=== PATIENT | female | born 1940 | race African-American/Black ===

== ENCOUNTER 2017-07-12 17:21 | Emergency (ER) | payer MEDICARE, OTHER ==
[~2017-07-12] VITALS: Ht 154.9 cm; Wt 60.0 kg
[2017-07-12 20:04] LABS: BASOPHILS % 0.8 % (0.0-2.0); EOSINOPHILS % 0.5 % (0.0-5.0); HEMATOCRIT. 31.7 % (36.0-48.0); HEMOGLOBIN. 10.9 g/dL (12.0-16.0); MEAN CORPUSCULAR HEMOGLOBIN 28.8 pg (28.0-32.0); MEAN PLATELET VOLUME 8.4 fl (7.4-10.4); MONOCYTES % 5.5 % (2.0-8.0); NEUTROPHILS % 69.2 % (40.0-76.0); PLATELET 224 x1000/uL (130-400); RED BLOOD CELL COUNT 3.77 mill/uL (4.2-5.4); RED CELL DISTRIBUTION WIDTH 14.9 % (11.6-14.6)
[2017-07-12 20:14] LABS: CARBON DIOXIDE 26 mEq/L (21-32); CHLORIDE 105 mEq/L (98-107)
[2017-07-12 20:16] LABS: PROTHROMBIN TIME 10.8 sec (9.4-11.6)
[2017-07-12 21:11] VITALS: BP 176/68
== END 2017-07-12 21:17 | disposition home or self-care (01) ==
LOC: ER 17:31
DX: R04.0 Epistaxis (principal); R05 Cough; D64.9 Anemia, unspecified; I12.9 Hypertensive chronic kidney disease with stage 1 through stage 4 chronic kidney disease, or unspecified chronic kidney disease; N18.9 Chronic kidney disease, unspecified; G23.8 Other specified degenerative diseases of basal ganglia; Z88.0 Allergy status to penicillin; Z88.5 Allergy status to narcotic agent; Z88.6 Allergy status to analgesic agent; Z86.73 Personal history of transient ischemic attack (TIA), and cerebral infarction without residual deficits
CPT/HCPCS: 36415; 70450; 80053; 85025; 85610; 99285

== ENCOUNTER 2019-06-05 19:21 | Inpatient (IN) | payer MEDICARE, OTHER ==
[~2019-06-05] VITALS: Ht 165.1 cm; Wt 52.2 kg
[2019-06-05 20:20] LABS: BASOPHILS % 0.6 % (0.0-2.0); EOSINOPHILS % 1.4 % (0.0-5.0); HEMATOCRIT. 26.3 % (36.0-48.0); HEMOGLOBIN. 8.6 g/dL (12.0-16.0); LYMPHOCYTES % 14.8 % (20.0-50.0); MEAN CORPUSCULAR HEMOGLOBIN 28.8 pg (28.0-32.0); MEAN CORPUSCULAR VOLUME 88.1 fL (81.0-99.0); MEAN PLATELET VOLUME 7.7 fl (7.4-10.4); MONOCYTES % 10.4 % (2.0-8.0); NEUTROPHILS % 72.8 % (40.0-76.0); PLATELET 229 x1000/uL (130-400); RED BLOOD CELL COUNT 2.99 mill/uL (4.2-5.4); RED CELL DISTRIBUTION WIDTH 19.1 % (11.6-14.6)
[2019-06-05 20:31] LABS: CHLORIDE 98 mEq/L (98-107)
[2019-06-05 20:33] LABS: INR 1.1; PROTHROMBIN TIME 11.1 sec (9.6-11.0)
[2019-06-05] MEDS ORDERED: ACETAMINOPHEN 325MG TABLET PO PRN (22:15)
[2019-06-05] MEDS ORDERED: HYDRALAZINE 20MG/ML VIAL IV PRN (22:15)
[2019-06-05] MEDS ORDERED: POTASSIUM CHLORIDE INJ 40 MEQ in DEXT 5% WATER 250 ML IV NR (22:15)
[2019-06-05] MEDS ORDERED: ONDANSETRON HCL 4MG/2ML INJ IV PRN (22:15)
[2019-06-06] VITALS (7 sets, daily range): BP systolic 95–147; BP diastolic 46–58
[2019-06-06 07:30] LABS: CLARITY URINE CLOUDY (CLEAR); COLOR URINE YELLOW (YELLOW); KETONES URINE NEGATIVE (NEGATIVE); LEUKOCYTE ESTERASE URINE 3+ (NEGATIVE); NITRITE URINE NEGATIVE (NEGATIVE); OCCULT BLOOD URINE NEGATIVE (NEGATIVE); PH URINE 5.5 (4.5-8.0); PROTEIN URINE 1+ (NEGATIVE); SPECIFIC GRAVITY URINE 1.011 (1.005-1.030); UROBILINOGEN URINE 0.2 E.U./dL (0.2-1.0)
[2019-06-06] MEDS: AMLODIPINE 5MG TABLET PO SCH ×2 (08:55→21:00)
[2019-06-06 09:04] LABS: BASOPHILS % 0.7 % (0.0-2.0); EOSINOPHILS % 1.1 % (0.0-5.0); HEMATOCRIT. 24.8 % (36.0-48.0); HEMOGLOBIN. 8.2 g/dL (12.0-16.0); LYMPHOCYTES % 16.8 % (20.0-50.0); MEAN CORPUSCULAR HEMOGLOBIN 29.1 pg (28.0-32.0); MEAN CORPUSCULAR VOLUME 88.1 fL (81.0-99.0); MEAN PLATELET VOLUME 8.1 fl (7.4-10.4); MONOCYTES % 7.9 % (2.0-8.0); NEUTROPHILS % 73.5 % (40.0-76.0); PLATELET 216 x1000/uL (130-400); RED BLOOD CELL COUNT 2.81 mill/uL (4.2-5.4); RED CELL DISTRIBUTION WIDTH 19.7 % (11.6-14.6)
[2019-06-06] MEDS ORDERED: LEVOFLOXACIN 500MG PREMIX 100 ML IV NR (12:00)
[2019-06-06] MEDS ORDERED: LEVOFLOXACIN 500MG PREMIX 100 ML IV SCH (13:00)
[2019-06-07 00:05] VITALS: BP 136/75
[2019-06-07 04:00] VITALS: BP 140/61
[2019-06-07 06:34] LABS: BASOPHILS % 0.2 % (0.0-2.0); HEMATOCRIT. 27.1 % (36.0-48.0); HEMOGLOBIN. 8.9 g/dL (12.0-16.0); MEAN CORPUSCULAR HEMOGLOBIN 29.2 pg (28.0-32.0); MEAN CORPUSCULAR VOLUME 88.7 fL (81.0-99.0); MONOCYTES % 6.3 % (2.0-8.0); NEUTROPHILS % 80.5 % (40.0-76.0); PLATELET 201 x1000/uL (130-400); RED BLOOD CELL COUNT 3.05 mill/uL (4.2-5.4); RED CELL DISTRIBUTION WIDTH 19.6 % (11.6-14.6)
[2019-06-07 08:00] VITALS: BP 137/47
[2019-06-07] MEDS: AMLODIPINE 5MG TABLET PO SCH ×2 (09:02→20:38)
[2019-06-07 12:00] VITALS: BP 128/51
[2019-06-07 16:00] VITALS: BP 119/69
[2019-06-07 20:00] VITALS: BP 134/56
[2019-06-07] MEDS: FOLIC ACID/VITAMIN B COMP W-C TABLET PO SCH (20:38)
[2019-06-08] VITALS: BP 140/72
[2019-06-08 04:00] VITALS: BP 138/56
[2019-06-08 08:00] VITALS: BP 144/61
[2019-06-08] MEDS: AMLODIPINE 5MG TABLET PO SCH ×2 (09:00→20:55)
[2019-06-08] MEDS: FOLIC ACID/VITAMIN B COMP W-C TABLET PO SCH (09:00)
[2019-06-08 12:00] VITALS: BP 138/79
[2019-06-08] MEDS ORDERED: LEVOFLOXACIN 250MG PREMIX 50 ML IV SCH (12:00)
[2019-06-08 16:00] VITALS: BP 138/79
[2019-06-08 20:52] VITALS: BP 108/60
[2019-06-09 00:52] VITALS: BP 130/48
[2019-06-09 04:00] VITALS: BP 128/46
[2019-06-09 07:16] LABS: BASOPHILS % 0.4 % (0.0-2.0); EOSINOPHILS % 1.1 % (0.0-5.0); HEMATOCRIT. 24.7 % (36.0-48.0); MEAN PLATELET VOLUME 8.6 fl (7.4-10.4); MONOCYTES % 7.4 % (2.0-8.0); NEUTROPHILS % 71.1 % (40.0-76.0); PLATELET 177 x1000/uL (130-400); RED BLOOD CELL COUNT 2.77 mill/uL (4.2-5.4); RED CELL DISTRIBUTION WIDTH 19.9 % (11.6-14.6)
[2019-06-09 07:32] LABS: PHOSPHORUS 1.7 mg/dL (2.5-4.9)
[2019-06-09 08:00] VITALS: BP 141/53
[2019-06-09] MEDS: FOLIC ACID/VITAMIN B COMP W-C TABLET PO SCH (08:38)
[2019-06-09] MEDS: AMLODIPINE 5MG TABLET PO SCH ×2 (09:00→20:23)
[2019-06-09 13:06] VITALS: BP 141/50
[2019-06-09 16:31] VITALS: BP 148/56
[2019-06-09 20:11] VITALS: BP 132/56
[2019-06-10 00:40] VITALS: BP 161/133
[2019-06-10 04:00] VITALS: BP 126/52
[2019-06-10 08:00] VITALS: BP 146/49
[2019-06-10 08:46] VITALS: BP 146/49
[2019-06-10 09:03] VITALS: BP 146/49
[2019-06-10] MEDS: AMLODIPINE 5MG TABLET PO SCH (09:19)
[2019-06-10] MEDS: FOLIC ACID/VITAMIN B COMP W-C TABLET PO SCH (09:19)
== END 2019-06-10 10:00 | disposition home or self-care (01) | DRG 871 ==
LOC: ER 19:21 → 7WST 22:04 → EDBEDREQ 22:11 → EDBEDREQTM 22:11 → ENRESERV 23:17
PROVIDERS: ADMIT Internal Medicine; ATTEND Internal Medicine
PROC: 5A1D70Z Performance of Urinary Filtration, Intermittent, Less than 6 Hours Per Day (ICD-10-PCS; principal; 2019-06-06)
PROC: 5A1D70Z Performance of Urinary Filtration, Intermittent, Less than 6 Hours Per Day (ICD-10-PCS; 2019-06-08)
DX: A41.51 Sepsis due to Escherichia coli [E. coli] (principal); G93.41 Metabolic encephalopathy; N18.6 End stage renal disease; E44.0 Moderate protein-calorie malnutrition; N39.0 Urinary tract infection, site not specified; I13.2 Hypertensive heart and chronic kidney disease with heart failure and with stage 5 chronic kidney disease, or end stage renal disease; Z68.1 Body mass index [BMI] 19.9 or less, adult; D63.1 Anemia in chronic kidney disease; E87.6 Hypokalemia; I50.9 Heart failure, unspecified; I27.20 Pulmonary hypertension, unspecified; F03.90 Unspecified dementia, unspecified severity, without behavioral disturbance, psychotic disturbance, mood disturbance, and anxiety; E78.5 Hyperlipidemia, unspecified; Z88.8 Allergy status to other drugs, medicaments and biological substances; Z99.2 Dependence on renal dialysis; Z88.5 Allergy status to narcotic agent; Z88.0 Allergy status to penicillin; Z79.899 Other long term (current) drug therapy
CPT/HCPCS: 36415; 71045; 80048; 80069; 81003; 82140; 82728; 83540; 83550; 83605; 84145; 84484; 87077; 87186; 92610; 93005; 93970; 96365; 97162; 97530; 97535; 99285; J1956; J2405; J3480; J7060

== ENCOUNTER 2022-04-09 16:43 | Inpatient (IN) | payer MEDICAID, MEDICARE ==
[~2022-04-09] VITALS: Ht 165.1 cm; Wt 45.4 kg
[2022-04-09] MEDS ORDERED: MORPHINE SULFATE 4 MG/ML CPJ (NOT FOR IM USE) IV STA (17:40)
[2022-04-09 18:05] LABS: CHLORIDE 102 mEq/L (98-107)
[2022-04-09 18:07] LABS: BASOPHILS % 1.1 % (0.0-2.0); EOSINOPHILS % 1.4 % (0.0-5.0); HEMATOCRIT. 33.7 % (36.0-48.0); HEMOGLOBIN. 11.4 g/dL (12.0-16.0); LYMPHOCYTES % 16.1 % (20.0-50.0); MEAN CORPUSCULAR HEMOGLOBIN 30.2 pg (28.0-32.0); MEAN CORPUSCULAR VOLUME 88.9 fL (81.0-99.0); MONOCYTES % 7.2 % (2.0-8.0); NEUTROPHILS % 74.2 % (40.0-76.0); RED BLOOD CELL COUNT 3.79 mill/uL (4.2-5.4); RED CELL DISTRIBUTION WIDTH 17.3 % (11.6-14.6)
[2022-04-09 18:14] LABS: PROTHROMBIN TIME 11.2 sec (9.6-11.0)
[2022-04-09] MEDS: ONDANSETRON HCL 4MG/2ML INJ IV PRN ×2 (18:18→20:39)
[2022-04-09 19:03] LABS: MEAN PLATELET VOLUME 10.3 fl (7.4-10.4); PLATELET 138 x1000/uL (130-400)
[2022-04-09] MEDS ORDERED: MORPHINE SULFATE 4 MG/ML CPJ (NOT FOR IM USE) IV ONE (20:30)
[2022-04-09] MEDS ORDERED: ACETAMINOPHEN 325MG TABLET PO ONE (20:30)
[2022-04-10 04:00] VITALS: BP_SYST 160; BP_DIAS 57; BP_DIAS 98
[2022-04-10] MEDS ORDERED: ONDANSETRON HCL 4MG/2ML INJ IV PRN (06:00)
[2022-04-10] MEDS ORDERED: HEPARIN 5000 UNITS/ML VIAL SUBCUT NR (06:00)
[2022-04-10] MEDS: HYDROMORPHONE HCL/PF 2MG/ML CPJ IV PRN ×2 (06:15→17:14)
[2022-04-10 08:00] VITALS: BP 167/54
[2022-04-10] MEDS: FOLIC ACID/VITAMIN B COMP W-C TABLET PO SCH (09:12)
[2022-04-10] MEDS: AMLODIPINE 5MG TABLET PO SCH (09:16)
[2022-04-10 09:39] LABS: PHOSPHORUS 6.3 mg/dL (2.5-4.9)
[2022-04-10] MEDS ORDERED: IPRATROPIUM/ALBUTEROL 0.5-3(2.5)MG/3ML NEB HHN PRN (09:45)
[2022-04-10] MEDS ORDERED: DIPHENHYDRAMINE 50MG/ML VIAL IV PRN (09:45)
[2022-04-10] MEDS ORDERED: ACETAMINOPHEN 325MG TABLET PO PRN (09:45)
[2022-04-10 10:15] VITALS: BP 198/80
[2022-04-10 12:00] VITALS: BP 181/73
[2022-04-10] MEDS: METOPROLOL TARTRATE 25MG TABLET PO SCH ×2 (13:54→21:23)
[2022-04-10 16:00] VITALS: BP 180/68
[2022-04-10 16:30] LABS: HEPATITIS B SURFACE ANTIGEN NEGATIVE
[2022-04-10] MEDS: CLONIDINE 0.1MG TABLET PO PRN (17:14)
[2022-04-10 20:00] VITALS: BP 153/60
[2022-04-10] MEDS ORDERED: HYDRALAZINE 20MG/ML VIAL IV PRN (20:15)
[2022-04-10] MEDS ORDERED: NALOXONE HCL 0.4MG/ML VIAL IV PRN (21:30)
[2022-04-11] VITALS: BP 157/71
[2022-04-11 04:00] VITALS: BP 118/83
[2022-04-11 06:49] LABS: CHLORIDE 99 mEq/L (98-107)
[2022-04-11 06:50] LABS: BASOPHILS % 0.4 % (0.0-2.0); EOSINOPHILS % 0.1 % (0.0-5.0); HEMOGLOBIN. 12.3 g/dL (12.0-16.0); MEAN CORPUSCULAR HEMOGLOBIN 29.8 pg (28.0-32.0); MEAN CORPUSCULAR VOLUME 89.7 fL (81.0-99.0); MONOCYTES % 6.7 % (2.0-8.0); NEUTROPHILS % 83.8 % (40.0-76.0); PLATELET 136 x1000/uL (130-400); RED BLOOD CELL COUNT 4.12 mill/uL (4.2-5.4); RED CELL DISTRIBUTION WIDTH 17.2 % (11.6-14.6)
[2022-04-11] MEDS: METOPROLOL TARTRATE 25MG TABLET PO SCH ×2 (09:00→21:25)
[2022-04-11] MEDS: FOLIC ACID/VITAMIN B COMP W-C TABLET PO SCH (09:00)
[2022-04-11] MEDS: AMLODIPINE 5MG TABLET PO SCH (09:00)
[2022-04-11] MEDS ORDERED: POLYMYXIN B SULFATE 500000 UNITS/VIAL ONE (09:36)
[2022-04-11] MEDS ORDERED: LIDOCAINE HCL/EPINEPHRINE 1%-EPI 1:100,000 20 ML VIAL ONE (09:37)
[2022-04-11] MEDS ORDERED: VANCOMYCIN HCL 1 GM/VIAL ONE (09:37)
[2022-04-11] MEDS ORDERED: HYDRALAZINE 20MG/ML VIAL IV NR (10:00)
[2022-04-11] MEDS ORDERED: CLINDAMYCIN 900 MG PREMIX 50 ML IV ONE (10:49)
[2022-04-11] MEDS ORDERED: PROPOFOL 200MG/20ML VIAL IV ONE ×2 (10:59→11:00)
[2022-04-11] MEDS ORDERED: HYDROCODONE/ACETAMINOPHEN 5/325MG TABLET PO PRN ×2 (11:00)
[2022-04-11] MEDS ORDERED: ONDANSETRON HCL 4MG/2ML INJ IV PRN ×2 (11:00→12:45)
[2022-04-11] MEDS ORDERED: FENTANYL CITRATE/PF 50MCG/ML 2ML VIAL ONE (11:00)
[2022-04-11] MEDS ORDERED: HYDROMORPHONE HCL/PF 2MG/ML CPJ IV PRN ×2 (11:00→12:45)
[2022-04-11] MEDS ORDERED: HYDRALAZINE 20MG/ML VIAL ONE (12:22)
[2022-04-11] MEDS ORDERED: GLYCOPYRROLATE 0.2 MG/ML 2ML VIAL IV PRN (12:45)
[2022-04-11] MEDS ORDERED: FENTANYL CITRATE/PF 50MCG/ML 2ML VIAL IV PRN (12:45)
[2022-04-11] MEDS: CLONIDINE 0.1MG TABLET PO PRN (13:45)
[2022-04-11 16:00] VITALS: BP 154/51
[2022-04-11] MEDS: CLINDAMYCIN 600 MG PREMIX 50 ML IV SCH (17:35)
[2022-04-11 20:00] VITALS: BP 159/59
[2022-04-12] MEDS: CLINDAMYCIN 600 MG PREMIX 50 ML IV SCH ×3 (00:36→17:00)
[2022-04-12 04:00] VITALS: BP 168/62
[2022-04-12] MEDS: CLONIDINE 0.1MG TABLET PO PRN (06:05)
[2022-04-12 06:21] LABS: HEMATOCRIT. 36.8 % (36.0-48.0); MEAN CORPUSCULAR HEMOGLOBIN 30.2 pg (28.0-32.0); MEAN CORPUSCULAR VOLUME 92.7 fL (81.0-99.0); MEAN PLATELET VOLUME 9.3 fl (7.4-10.4); PLATELET 112 x1000/uL (130-400); RED BLOOD CELL COUNT 3.97 mill/uL (4.2-5.4); RED CELL DISTRIBUTION WIDTH 17.3 % (11.6-14.6)
[2022-04-12 06:30] LABS: PHOSPHORUS 8.4 mg/dL (2.5-4.9)
[2022-04-12 08:30] VITALS: BP 164/57
[2022-04-12 09:11] LABS: NUCLEATED RED BLOOD CELLS 1 /100 WBC
[2022-04-12 09:12] LABS: PLATELET ESTIMATE SLIGHTLY DECREASED
[2022-04-12] MEDS: FOLIC ACID/VITAMIN B COMP W-C TABLET PO SCH (09:14)
[2022-04-12] MEDS: METOPROLOL TARTRATE 25MG TABLET PO SCH ×2 (09:14→20:00)
[2022-04-12] MEDS: AMLODIPINE 5MG TABLET PO SCH (09:14)
[2022-04-12] MEDS: SEVELAMER CARBONATE 800 MG TABLET PO SCH ×3 (09:20→18:02)
[2022-04-12 12:00] VITALS: BP 150/64
[2022-04-12] MEDS: ENOXAPARIN 30MG/0.3ML SYR SUBCUT SCH (13:36)
[2022-04-12 16:00] VITALS: BP 144/52
[2022-04-12 20:00] VITALS: BP 144/64
[2022-04-13] VITALS (7 sets, daily range): BP systolic 133–176; BP diastolic 39–73
[2022-04-13] MEDS: CLINDAMYCIN 600 MG PREMIX 50 ML IV SCH ×2 (00:30→09:23)
[2022-04-13 06:32] LABS: PHOSPHORUS 6.8 mg/dL (2.5-4.9)
[2022-04-13 06:50] LABS: BASOPHILS % 0.4 % (0.0-2.0); EOSINOPHILS % 0.1 % (0.0-5.0); HEMATOCRIT. 34.4 % (36.0-48.0); HEMOGLOBIN. 11.5 g/dL (12.0-16.0); LYMPHOCYTES % 11.4 % (20.0-50.0); MEAN CORPUSCULAR HEMOGLOBIN 30.2 pg (28.0-32.0); MEAN CORPUSCULAR VOLUME 89.9 fL (81.0-99.0); MEAN PLATELET VOLUME 10.5 fl (7.4-10.4); MONOCYTES % 10.7 % (2.0-8.0); NEUTROPHILS % 77.4 % (40.0-76.0); PLATELET 115 x1000/uL (130-400); RED BLOOD CELL COUNT 3.82 mill/uL (4.2-5.4); RED CELL DISTRIBUTION WIDTH 16.9 % (11.6-14.6)
[2022-04-13] MEDS: FOLIC ACID/VITAMIN B COMP W-C TABLET PO SCH (09:23)
[2022-04-13] MEDS: AMLODIPINE 5MG TABLET PO SCH (09:23)
[2022-04-13] MEDS: METOPROLOL TARTRATE 25MG TABLET PO SCH ×2 (09:24→20:45)
[2022-04-13] MEDS: SEVELAMER CARBONATE 800 MG TABLET PO SCH ×3 (09:28→17:00)
[2022-04-13] MEDS: ENOXAPARIN 30MG/0.3ML SYR SUBCUT SCH (13:45)
== END 2022-04-13 21:20 | DRG 480 ==
LOC: ER 16:43 → MICUSO 20:47 → 7WST 04-10 03:46
PROVIDERS: ADMIT Internal Medicine; ATTEND Internal Medicine
PROC: 5A1D70Z Performance of Urinary Filtration, Intermittent, Less than 6 Hours Per Day (ICD-10-PCS; 2022-04-10)
PROC: 0QS704Z Reposition Left Upper Femur with Internal Fixation Device, Open Approach (ICD-10-PCS; principal; 2022-04-11)
PROC: 5A1D70Z Performance of Urinary Filtration, Intermittent, Less than 6 Hours Per Day (ICD-10-PCS; 2022-04-12)
DX: S72.142A Displaced intertrochanteric fracture of left femur, initial encounter for closed fracture (principal); N18.6 End stage renal disease; I13.2 Hypertensive heart and chronic kidney disease with heart failure and with stage 5 chronic kidney disease, or end stage renal disease; D63.1 Anemia in chronic kidney disease; Z20.822 Contact with and (suspected) exposure to COVID-19; I50.9 Heart failure, unspecified; W18.39XA Other fall on same level, initial encounter; D64.9 Anemia, unspecified; F03.90 Unspecified dementia, unspecified severity, without behavioral disturbance, psychotic disturbance, mood disturbance, and anxiety; E78.5 Hyperlipidemia, unspecified; Z99.2 Dependence on renal dialysis; Z88.6 Allergy status to analgesic agent; Z88.5 Allergy status to narcotic agent; Z88.0 Allergy status to penicillin; Z79.899 Other long term (current) drug therapy; Y93.89 Activity, other specified; Y92.89 Other specified places as the place of occurrence of the external cause; Y99.8 Other external cause status
CPT/HCPCS: 36415; 71045; 73502; 73552; 76000; 80053; 80069; 84145; 85025; 86705; 86709; 86803; 86850; 86900; 87340; 87426; 93005; 93970; 97161; 97163; 97165; 97166; 97530; 99285; C1713; J0360; J1170; J1644; J1650; J2270; J2405; J2704; J3010; J3370; J3490; J7060

== ENCOUNTER 2022-04-13 17:20 | Inpatient (IN) | payer MEDICARE ==
[~2022-04-13] VITALS: Ht 165.1 cm; Wt 52.6 kg
[2022-04-13] MEDS ORDERED: IPRATROPIUM/ALBUTEROL 0.5-3(2.5)MG/3ML NEB HHN PRN (22:15)
[2022-04-13] MEDS ORDERED: ONDANSETRON HCL 4MG/2ML INJ IV PRN (22:15)
[2022-04-13] MEDS ORDERED: CLONIDINE 0.1MG TABLET PO PRN (22:15)
[2022-04-13] MEDS ORDERED: HYDRALAZINE 20MG/ML VIAL IV PRN (22:15)
[2022-04-13] MEDS ORDERED: NALOXONE HCL 0.4 MG/ML 1ML VIAL IV PRN (22:15)
[2022-04-13] MEDS ORDERED: DIPHENHYDRAMINE 50MG/ML VIAL IV PRN (22:15)
[2022-04-13] MEDS ORDERED: HYDROMORPHONE HCL/PF 2MG/ML CPJ IV PRN (22:15)
[2022-04-13] MEDS ORDERED: GLYCOPYRROLATE 0.2MG/ML VIAL 5ML IV PRN (22:15)
[2022-04-13 22:40] VITALS: BP 179/47
[2022-04-13] MEDS ORDERED: HYDRALAZINE 10 MG in SODIUM CHLORIDE 0.9% 49.5 ML IV PRN (23:00)
[2022-04-14] MEDS: HYDROCODONE/ACETAMINOPHEN 5/325MG TABLET PO PRN ×4 (00:14→23:35)
[2022-04-14 06:13] LABS: BASOPHILS % 0.3 % (0.0-2.0); EOSINOPHILS % 0.6 % (0.0-5.0); HEMATOCRIT. 28.7 % (36.0-48.0); HEMOGLOBIN. 9.5 g/dL (12.0-16.0); MEAN CORPUSCULAR HEMOGLOBIN 29.4 pg (28.0-32.0); MEAN CORPUSCULAR VOLUME 89.2 fL (81.0-99.0); MEAN PLATELET VOLUME 10.7 fl (7.4-10.4); MONOCYTES % 9.9 % (2.0-8.0); NEUTROPHILS % 76.2 % (40.0-76.0); PLATELET 134 x1000/uL (130-400); RED BLOOD CELL COUNT 3.22 mill/uL (4.2-5.4); RED CELL DISTRIBUTION WIDTH 16.3 % (11.6-14.6)
[2022-04-14 07:08] LABS: CHLORIDE 98 mEq/L (98-107); PHOSPHORUS 7.7 mg/dL (2.5-4.9)
[2022-04-14 08:00] VITALS: BP 181/50
[2022-04-14] MEDS: FOLIC ACID/VITAMIN B COMP W-C TABLET PO SCH (08:37)
[2022-04-14] MEDS: METOPROLOL TARTRATE 25MG TABLET PO SCH ×2 (08:40→23:34)
[2022-04-14] MEDS: AMLODIPINE 5MG TABLET PO SCH (08:40)
[2022-04-14] MEDS ORDERED: SEVELAMER CARBONATE 800 MG TABLET PO SCH (09:00)
[2022-04-14] MEDS ORDERED: ENOXAPARIN 30MG/0.3ML SYR SUBCUT SCH (13:00)
[2022-04-14] MEDS: SEVELAMER CARBONATE 800 MG TABLET PO SCH ×2 (13:35→17:58)
[2022-04-14 17:38] LABS: VITAMIN B12 SERUM 1081 pg/mL (211-911)
[2022-04-14 20:00] VITALS: BP 144/54
[2022-04-15] MEDS: BISACODYL 10MG SUPP PR PRN (06:07)
[2022-04-15] MEDS: HYDROCODONE/ACETAMINOPHEN 5/325MG TABLET PO PRN ×2 (06:15→23:03)
[2022-04-15 08:00] VITALS: BP 135/40
[2022-04-15] MEDS: SEVELAMER CARBONATE 800 MG TABLET PO SCH ×3 (09:21→16:48)
[2022-04-15] MEDS: FOLIC ACID/VITAMIN B COMP W-C TABLET PO SCH (09:21)
[2022-04-15] MEDS: AMLODIPINE 5MG TABLET PO SCH (09:21)
[2022-04-15] MEDS: METOPROLOL TARTRATE 25MG TABLET PO SCH ×2 (09:22→20:04)
[2022-04-15 19:53] VITALS: BP 150/44
[2022-04-16] MEDS: HYDROCODONE/ACETAMINOPHEN 5/325MG TABLET PO PRN ×2 (03:32→19:47)
[2022-04-16 05:35] VITALS: BP 118/36
[2022-04-16 08:00] VITALS: BP 116/35
[2022-04-16] MEDS: METOPROLOL TARTRATE 25MG TABLET PO SCH ×2 (09:16→21:00)
[2022-04-16] MEDS: SEVELAMER CARBONATE 800 MG TABLET PO SCH ×3 (09:17→19:05)
[2022-04-16] MEDS: FOLIC ACID/VITAMIN B COMP W-C TABLET PO SCH (09:17)
[2022-04-16] MEDS: AMLODIPINE 5MG TABLET PO SCH (09:17)
[2022-04-16 20:00] VITALS: BP 145/56
[2022-04-17] MEDS: HYDROCODONE/ACETAMINOPHEN 5/325MG TABLET PO PRN ×3 (00:17→08:37)
[2022-04-17 06:34] LABS: HEMATOCRIT 27.3 % (36.0-48.0); HEMOGLOBIN 9.1 g/dL (12.0-16.0); MEAN CORPUSCULAR HEMOGLOBIN 30.2 pg (28.0-32.0); MEAN CORPUSCULAR VOLUME 90.7 fL (81.0-99.0); PLATELET 205 x1000/uL (130-400); RED BLOOD CELL COUNT 3.01 mill/uL (4.2-5.4); RED CELL DISTRIBUTION WIDTH 16.3 % (11.6-14.6)
[2022-04-17 08:00] VITALS: BP 159/54
[2022-04-17] MEDS: FOLIC ACID/VITAMIN B COMP W-C TABLET PO SCH (08:28)
[2022-04-17] MEDS: AMLODIPINE 5MG TABLET PO SCH ×2 (08:28→09:00)
[2022-04-17] MEDS: METOPROLOL TARTRATE 25MG TABLET PO SCH ×2 (08:39→21:00)
[2022-04-17] MEDS: SEVELAMER CARBONATE 800 MG TABLET PO SCH ×4 (08:39→18:10)
[2022-04-17] MEDS ORDERED: AMLODIPINE 5MG TABLET PO NR (08:53)
[2022-04-17 20:00] VITALS: BP 149/52
[2022-04-18 08:00] VITALS: BP 154/55
[2022-04-18] MEDS: METOPROLOL TARTRATE 25MG TABLET PO SCH ×2 (08:21→20:51)
[2022-04-18] MEDS: SEVELAMER CARBONATE 800 MG TABLET PO SCH ×3 (08:21→16:32)
[2022-04-18] MEDS: FOLIC ACID/VITAMIN B COMP W-C TABLET PO SCH (08:21)
[2022-04-18] MEDS: AMLODIPINE 5MG TABLET PO SCH (08:21)
[2022-04-18 20:15] VITALS: BP 144/44
[2022-04-18] MEDS: ACETAMINOPHEN 325MG TABLET PO PRN (23:08)
[2022-04-19] MEDS ORDERED: NALOXONE HCL 0.4MG/ML VIAL IV PRN (04:45)
[2022-04-19] MEDS ORDERED: HYDROCODONE/ACETAMINOPHEN 10/325MG TABLET PO PRN (04:45)
[2022-04-19] MEDS ORDERED: HYDROCODONE/ACETAMINOPHEN 5/325MG TABLET PO PRN (04:45)
[2022-04-19 08:00] VITALS: BP 134/57
[2022-04-19] MEDS: FOLIC ACID/VITAMIN B COMP W-C TABLET PO SCH (09:00)
[2022-04-19] MEDS: METOPROLOL TARTRATE 25MG TABLET PO SCH ×2 (09:01→22:36)
[2022-04-19] MEDS: AMLODIPINE 5MG TABLET PO SCH (09:01)
[2022-04-19] MEDS: SEVELAMER CARBONATE 800 MG TABLET PO SCH ×3 (09:02→22:35)
[2022-04-19] MEDS: ACETAMINOPHEN 325MG TABLET PO PRN ×2 (09:02→20:31)
[2022-04-19 19:56] VITALS: BP 137/62
[2022-04-19] MEDS: POLYETHYLENE GLYCOL 3350 (17GM) 1 DOSE PACK PO PRN (22:35)
[2022-04-20] MEDS: BISACODYL 10MG SUPP PR PRN (06:47)
[2022-04-20 08:00] VITALS: BP 135/49
[2022-04-20] MEDS: AMLODIPINE 5MG TABLET PO SCH (09:19)
[2022-04-20] MEDS: METOPROLOL TARTRATE 25MG TABLET PO SCH ×2 (09:19→20:36)
[2022-04-20] MEDS: SEVELAMER CARBONATE 800 MG TABLET PO SCH ×3 (09:19→17:59)
[2022-04-20] MEDS: FOLIC ACID/VITAMIN B COMP W-C TABLET PO SCH (09:19)
[2022-04-20 20:00] VITALS: BP 146/47
[2022-04-20] MEDS: POLYETHYLENE GLYCOL 3350 (17GM) 1 DOSE PACK PO PRN (21:26)
[2022-04-21] MEDS: ACETAMINOPHEN 325MG TABLET PO PRN (00:45)
[2022-04-21 06:51] LABS: HEMATOCRIT 26.2 % (36.0-48.0); HEMOGLOBIN 8.7 g/dL (12.0-16.0); MEAN CORPUSCULAR VOLUME 90.5 fL (81.0-99.0); PLATELET 214 x1000/uL (130-400); RED CELL DISTRIBUTION WIDTH 16.4 % (11.6-14.6)
[2022-04-21 08:06] VITALS: BP 127/34
[2022-04-21] MEDS: METOPROLOL TARTRATE 25MG TABLET PO SCH (09:00)
[2022-04-21] MEDS: AMLODIPINE 5MG TABLET PO SCH ×2 (09:00→09:58)
[2022-04-21] MEDS: SEVELAMER CARBONATE 800 MG TABLET PO SCH ×3 (09:49→18:21)
[2022-04-21] MEDS: FOLIC ACID/VITAMIN B COMP W-C TABLET PO SCH (09:49)
[2022-04-21] MEDS: POLYETHYLENE GLYCOL 3350 (17GM) 1 DOSE PACK PO SCH (10:58)
[2022-04-21 20:00] VITALS: BP 150/51
[2022-04-22] MEDS: EPOETIN ALFA-EPBX 4,000 UNIT/ML VIAL SUBCUT SCH (00:20)
[2022-04-22] MEDS: METOPROLOL TARTRATE 25MG TABLET PO SCH ×3 (00:22→20:33)
[2022-04-22 08:00] VITALS: BP 104/48
[2022-04-22] MEDS: POLYETHYLENE GLYCOL 3350 (17GM) 1 DOSE PACK PO SCH (08:57)
[2022-04-22] MEDS: AMLODIPINE 5MG TABLET PO SCH (09:00)
[2022-04-22] MEDS: FOLIC ACID/VITAMIN B COMP W-C TABLET PO SCH (09:01)
[2022-04-22] MEDS: SEVELAMER CARBONATE 800 MG TABLET PO SCH ×3 (09:01→17:57)
[2022-04-22 20:00] VITALS: BP 151/43
[2022-04-23 08:00] VITALS: BP 158/51
[2022-04-23] MEDS: SEVELAMER CARBONATE 800 MG TABLET PO SCH ×3 (09:16→16:45)
[2022-04-23] MEDS: FOLIC ACID/VITAMIN B COMP W-C TABLET PO SCH (09:16)
[2022-04-23] MEDS: METOPROLOL TARTRATE 25MG TABLET PO SCH ×2 (09:17→21:00)
[2022-04-23] MEDS: AMLODIPINE 5MG TABLET PO SCH (09:18)
[2022-04-23] MEDS: POLYETHYLENE GLYCOL 3350 (17GM) 1 DOSE PACK PO SCH (09:18)
[2022-04-23] MEDS: LISINOPRIL 20MG TABLET PO SCH (13:00)
[2022-04-23 20:00] VITALS: BP 127/51
[2022-04-24 08:00] VITALS: BP 150/47
[2022-04-24] MEDS: POLYETHYLENE GLYCOL 3350 (17GM) 1 DOSE PACK PO SCH (09:00)
[2022-04-24] MEDS: FOLIC ACID/VITAMIN B COMP W-C TABLET PO SCH (09:33)
[2022-04-24] MEDS: ACETAMINOPHEN 325MG TABLET PO PRN (09:33)
[2022-04-24] MEDS: SEVELAMER CARBONATE 800 MG TABLET PO SCH ×3 (09:34→17:00)
[2022-04-24] MEDS: METOPROLOL TARTRATE 25MG TABLET PO SCH ×2 (09:35→21:00)
[2022-04-24] MEDS: LISINOPRIL 20MG TABLET PO SCH (09:36)
[2022-04-24] MEDS: AMLODIPINE 5MG TABLET PO SCH (09:38)
[2022-04-24 20:00] VITALS: BP 124/52
[2022-04-24] MEDS: EPOETIN ALFA-EPBX 4,000 UNIT/ML VIAL SUBCUT SCH (21:23)
[2022-04-25 08:00] VITALS: BP 148/43
[2022-04-25] MEDS: LISINOPRIL 20MG TABLET PO SCH (09:49)
[2022-04-25] MEDS: POLYETHYLENE GLYCOL 3350 (17GM) 1 DOSE PACK PO SCH (09:49)
[2022-04-25] MEDS: FOLIC ACID/VITAMIN B COMP W-C TABLET PO SCH (09:50)
[2022-04-25] MEDS: AMLODIPINE 10MG TABLET PO SCH (09:50)
[2022-04-25] MEDS: METOPROLOL TARTRATE 25MG TABLET PO SCH ×2 (09:50→21:00)
[2022-04-25] MEDS: SEVELAMER CARBONATE 800 MG TABLET PO SCH ×3 (09:50→17:22)
[2022-04-25] MEDS: ACETAMINOPHEN 325MG TABLET PO PRN (14:06)
[2022-04-25 20:00] VITALS: BP 141/56
[2022-04-26 06:43] LABS: BASOPHILS % 0.8 % (0.0-2.0); HEMOGLOBIN. 8.2 g/dL (12.0-16.0); LYMPHOCYTES % 16.7 % (20.0-50.0); MEAN CORPUSCULAR HEMOGLOBIN 31.1 pg (28.0-32.0); MEAN CORPUSCULAR VOLUME 91.4 fL (81.0-99.0); MEAN PLATELET VOLUME 9.5 fl (7.4-10.4); MONOCYTES % 5.4 % (2.0-8.0); NEUTROPHILS % 75.1 % (40.0-76.0); PLATELET 238 x1000/uL (130-400); RED BLOOD CELL COUNT 2.63 mill/uL (4.2-5.4); RED CELL DISTRIBUTION WIDTH 16.2 % (11.6-14.6)
[2022-04-26 08:00] VITALS: BP 158/59
[2022-04-26] MEDS: POLYETHYLENE GLYCOL 3350 (17GM) 1 DOSE PACK PO SCH (08:20)
[2022-04-26] MEDS: FOLIC ACID/VITAMIN B COMP W-C TABLET PO SCH (08:21)
[2022-04-26] MEDS: SEVELAMER CARBONATE 800 MG TABLET PO SCH ×3 (08:22→16:40)
[2022-04-26] MEDS: METOPROLOL TARTRATE 25MG TABLET PO SCH ×2 (08:26→20:52)
[2022-04-26] MEDS: AMLODIPINE 10MG TABLET PO SCH (08:27)
[2022-04-26] MEDS: LISINOPRIL 20MG TABLET PO SCH (08:28)
[2022-04-26 09:57] LABS: TOTAL IRON BINDING CAPACITY 244 ug/dL (250-450)
[2022-04-26 19:35] VITALS: BP 140/79
[2022-04-27] MEDS: EPOETIN ALFA-EPBX 4,000 UNIT/ML VIAL SUBCUT SCH (01:03)
[2022-04-27] MEDS: ACETAMINOPHEN 325MG TABLET PO PRN (07:36)
[2022-04-27 08:00] VITALS: BP 124/44
[2022-04-27] MEDS: FOLIC ACID/VITAMIN B COMP W-C TABLET PO SCH (08:19)
[2022-04-27] MEDS: SEVELAMER CARBONATE 800 MG TABLET PO SCH ×3 (08:19→20:16)
[2022-04-27] MEDS: POLYETHYLENE GLYCOL 3350 (17GM) 1 DOSE PACK PO SCH (08:19)
[2022-04-27] MEDS: AMLODIPINE 10MG TABLET PO SCH (08:20)
[2022-04-27] MEDS: LISINOPRIL 20MG TABLET PO SCH (08:20)
[2022-04-27] MEDS: METOPROLOL TARTRATE 25MG TABLET PO SCH ×2 (08:20→20:16)
[2022-04-27 20:00] VITALS: BP 141/60
[2022-04-28] MEDS: ACETAMINOPHEN 325MG TABLET PO PRN (05:53)
[2022-04-28 08:00] VITALS: BP 134/58
[2022-04-28] MEDS: AMLODIPINE 10MG TABLET PO SCH (10:00)
[2022-04-28] MEDS: POLYETHYLENE GLYCOL 3350 (17GM) 1 DOSE PACK PO SCH (10:00)
[2022-04-28] MEDS: SEVELAMER CARBONATE 800 MG TABLET PO SCH ×3 (10:05→18:19)
[2022-04-28] MEDS: FOLIC ACID/VITAMIN B COMP W-C TABLET PO SCH (10:06)
[2022-04-28] MEDS: LISINOPRIL 20MG TABLET PO SCH (10:06)
[2022-04-28] MEDS: METOPROLOL TARTRATE 25MG TABLET PO SCH ×2 (10:06→20:57)
[2022-04-28 20:00] VITALS: BP 137/48
[2022-04-29] MEDS: ACETAMINOPHEN 325MG TABLET PO PRN (03:30)
[2022-04-29 08:00] VITALS: BP 127/42
[2022-04-29] MEDS: METOPROLOL TARTRATE 25MG TABLET PO SCH (09:00)
[2022-04-29] MEDS: POLYETHYLENE GLYCOL 3350 (17GM) 1 DOSE PACK PO SCH (09:00)
[2022-04-29] MEDS: AMLODIPINE 10MG TABLET PO SCH (09:22)
[2022-04-29] MEDS: FOLIC ACID/VITAMIN B COMP W-C TABLET PO SCH (09:22)
[2022-04-29] MEDS: SEVELAMER CARBONATE 800 MG TABLET PO SCH ×2 (09:23→14:08)
[2022-04-29] MEDS: LISINOPRIL 20MG TABLET PO SCH (09:23)
[2022-04-29 11:40] VITALS: BP 120/43
== END 2022-04-29 16:00 | DRG 535 ==
PROVIDERS: ADMIT Psychiatry & Neurology Neurology; ATTEND Internal Medicine
PROC: 5A1D70Z Performance of Urinary Filtration, Intermittent, Less than 6 Hours Per Day (ICD-10-PCS; principal; 2022-04-14)
PROC: 5A1D70Z Performance of Urinary Filtration, Intermittent, Less than 6 Hours Per Day (ICD-10-PCS; 2022-04-17)
PROC: 5A1D70Z Performance of Urinary Filtration, Intermittent, Less than 6 Hours Per Day (ICD-10-PCS; 2022-04-19)
PROC: 5A1D70Z Performance of Urinary Filtration, Intermittent, Less than 6 Hours Per Day (ICD-10-PCS; 2022-04-21)
PROC: 5A1D70Z Performance of Urinary Filtration, Intermittent, Less than 6 Hours Per Day (ICD-10-PCS; 2022-04-24)
PROC: 5A1D70Z Performance of Urinary Filtration, Intermittent, Less than 6 Hours Per Day (ICD-10-PCS; 2022-04-26)
PROC: 5A1D70Z Performance of Urinary Filtration, Intermittent, Less than 6 Hours Per Day (ICD-10-PCS; 2022-04-28)
DX: S72.142A Displaced intertrochanteric fracture of left femur, initial encounter for closed fracture (principal); N18.6 End stage renal disease; I12.0 Hypertensive chronic kidney disease with stage 5 chronic kidney disease or end stage renal disease; G93.40 Encephalopathy, unspecified; D63.1 Anemia in chronic kidney disease; W18.39XA Other fall on same level, initial encounter; F03.90 Unspecified dementia, unspecified severity, without behavioral disturbance, psychotic disturbance, mood disturbance, and anxiety; Z20.822 Contact with and (suspected) exposure to COVID-19; Z99.2 Dependence on renal dialysis; Z86.73 Personal history of transient ischemic attack (TIA), and cerebral infarction without residual deficits; Y93.89 Activity, other specified; Y92.89 Other specified places as the place of occurrence of the external cause; Y99.8 Other external cause status
CPT/HCPCS: 36415; 73551; 80048; 80053; 82607; 82728; 83540; 83550; 84100; 84443; 85025; 85027; 87426; 92523; 97110; 97116; 97162; 97166; 97530; 97535; 97542; J0885; J7030